=== PATIENT | male | born 1990 | race Caucasian/White ===

== ENCOUNTER 2018-10-07 10:43 | Inpatient (IN) | payer BC ==
[2018-10-07 11:41] LABS: PLATELET COUNT 349 10^3/uL (150-400)
[2018-10-07] MEDS ORDERED: LISINOPRIL 20 MG TAB PO ONE (12:04)
--- NOTE | 2018-10-07 12:17 | CPEKG ---
Test Reason : OPEN Blood Pressure : / mmHG Vent. Rate : 102 BPM Atrial Rate : 102 BPM P-R Int : 188 ms QRS Dur : 103 ms QT Int : 380 ms P-R-T Axes : 051 -14 060 degrees QTc Int : 496 ms Sinus tachycardia LAE, consider biatrial enlargement Prolonged QT interval Confirmed by Jim Hart ([id number]) on 10/07/2018 12:17:12 PM Referred By: Jim Hart Confirmed By:Jim Hart
--- NOTE | 2018-10-07 12:19 | EDPHY ---
H & P Stated Complaint: c/o chest pressure/sob intermittently x 1 month, today elevated bp Time Seen by Provider: 10/07/18 10:43 HPI/ROS: CHIEF COMPLAINT: Chest pain HISTORY OF PRESENT ILLNESS: 27-year-old male arrives via ambulance from his place of employment at [employer] complaining of intermittent chest pain for the past 1 month. Doubt today however he was walking upstairs at work developed chest pain, diaphoresis, near-syncope. He went to the nurse's office at work, blood pressure was 220/110 and ambulance was called. He notes exertional chest pain for the past 1 month. He also notes peripheral edema for the past few months which appears to be progressive. Denies illicit drug use beyond inhalational marijuana use. Denies cocaine use. Denies family history of premature coronary artery disease, VTE or sudden unexplained . PRIMARY CARE PROVIDER: No primary care provider REVIEW OF SYSTEMS: 10 systems reviewed and negative with the exception of the elements mentioned in the history of present illness PAST MEDICAL & SURGICAL HISTORY: No pertinent medical or surgical history SOCIAL HISTORY:Intermittent inhalational marijuana. No tobacco abuse. No cocaine use FAMILY HISTORY: No family history of VTE, premature coronary artery disease, sudden unexplained PHYSICAL EXAM (Prior to examination, patient consented to physical exam, hands were washed and my usual and customary physical exam procedures followed) 1) GENERAL: obese, alert and oriented. Appears to be in no acute distress. 2) HEAD: Normocephalic, atraumatic 3) HEENT: Pupils equal, round, reactive to light bilaterally. Sclera anicteric. Nasopharynx, oropharynx, clear, no lesions. Moist Mucous membranes. 4) NECK: Full range of motion, no meningeal signs. Negative carotid bruit 5) LUNGS: Clear auscultation bilaterally, no wheezes, no rhonchi, no retractions. 6) HEART: Regular rate and rhythm, no murmur, no heave, no gallop. 7) ABDOMEN: No guarding, no rebound, no focal tenderness, negative McBurney's, negative Wilhelm's, negative Rovsing's, negative peritoneal sign, 8) MUSCULOSKELETAL: Moving all extremities, no focal areas of tenderness, no obvious trauma. No peripheral edema or discoloration. 9) BACK: No CVA tenderness, no midline vertebral tenderness, no fluctuance, no step-off, no obvious trauma, no visual or palpable abnormality. 10) SKIN: No rash, no petechiae. 11) Psychiatric: Patient is oriented X 3, there is no agitation. DIFFERENTIAL DIAGNOSIS: In no particular order, including but not limited to myocardial ischemia, pulmonary embolus, chest wall pain, pleural inflammation and pulmonary infectious causes. - Medical/Surgical History Hx Asthma: No Hx Chronic Respiratory Disease: No Hx Diabetes: No Hx Cardiac Disease: No Hx Renal Disease: No Hx Cirrhosis: No Hx Alcoholism: No Hx HIV/AIDS: No Hx Splenectomy or Spleen Trauma: No Other PMH: kidney stones - Social History Smoking Status: Former smoker Constitutional: Initial Vital Signs Temperature (C) 36.6 C 10/07/18 10:51 Heart Rate 108 H 10/07/18 10:51 Respiratory Rate 16 10/07/18 10:51 Blood Pressure 225/140 H 10/07/18 10:51 O2 Sat (%) 97 10/07/18 10:51 O2 Delivery Mode Room Air Allergies/Adverse Reactions: Penicillins Allergy (Verified 10/07/18 10:55) Home Medications: Medication Instructions Recorded Aspirin [Aspirin 325 mg (*)] 975 mg PO DAILY PRN 10/07/18 Medical Decision Making - Diagnostics Imaging Results: Imaging Impressions Chest X-Ray 10/07/18 11:19 Impression: 1. Cardiomegaly versus pericardial effusion. No failure. 2. Mild airways disease. No pneumothorax or pneumonia. ED Course/Re-evaluation: Noon.: Case discussed with secondary supine position Dr. Jim Hart. He is noted to have more than likely biatrial enlargement as well as possible cardiomegaly on exam the presence of hypertension. Negative troponin negative D -dimer. Doubt pneumothorax. Doubt PE.The specific etiology the patient's chest pain is incompletely clear at this time. Recommended hospital admission. Patient is agreeable with this. 12:19 p.m.: Consultation with hospitalist, admit to Dr. Peres for chest pain, hypertension, likely biatrial enlargement - Data Points Laboratory Results: Laboratory Results 10/07/18 10:50 10/07/18 10:50 10/07/18 10/07/18 10/07/18 11:53 10:50 10:50 WBC RBC Hgb Hct MCV MCH MCHC RDW Plt Count MPV Neut % (Auto) Lymph % (Auto) [place] % (Auto) Eos % (Auto) Baso % (Auto) Nucleat RBC Rel Count Absolute Neuts (auto) Absolute Lymphs (auto) Absolute Monos (auto) Absolute Eos (auto) Absolute Basos (auto) Absolute Nucleated RBC Immature Gran % Immature Gran # D-Dimer Sodium Potassium Chloride Carbon Dioxide Anion Gap BUN Creatinine Estimated GFR Glucose Hemoglobin A1c Pending Estim Average Glucose Pending Calcium Total Bilirubin Conjugated Bilirubin Unconjugated Bilirubin AST ALT Alkaline Phosphatase POC Troponin I 0.01 ng/mL ng/mL (0.00-0.08) Total Protein Albumin Lipase TSH 2.010 uIU/mL uIU/mL (0.465-4.680) 10/07/18 10/07/18 10/07/18 10:50 10:50 10:50 WBC 7.69 10^3/uL 10^3/uL (3.80-9.50) RBC 5.56 10^6/uL 10^6/uL (4.40-6.38) Hgb 15.8 g/dL g/dL (13.7-17.5) Hct 47.8 % % (40.0-51.0) MCV 86.0 fL fL (81.5-99.8) MCH 28.4 pg pg (27.9-34.1) MCHC 33.1 g/dL g/dL (32.4-36.7) RDW 13.8 % % (11.5-15.2) Plt Count 349 10^3/uL 10^3/uL (150-400) MPV 10.2 fL fL (8.7-11.7) Neut % (Auto) 65.7 % % (39.3-74.2) Lymph % (Auto) 23.5 % % (15.0-45.0) [place] % (Auto) 7.9 % % (4.5-13.0) Eos % (Auto) 2.2 % % (0.6-7.6) Baso % (Auto) 0.4 % % (0.3-1.7) Nucleat RBC Rel Count 0.0 % % (0.0-0.2) Absolute Neuts (auto) 5.05 10^3/uL 10^3/uL (1.70-6.50) Absolute Lymphs (auto) 1.81 10^3/uL 10^3/uL (1.00-3.00) Absolute Monos (auto) 0.61 10^3/uL 10^3/uL (0.30-0.80) Absolute Eos (auto) 0.17 10^3/uL 10^3/uL (0.03-0.40) Absolute Basos (auto) 0.03 10^3/uL 10^3/uL (0.02-0.10) Absolute Nucleated RBC 0.00 10^3/uL 10^3/uL (0-0.01) Immature Gran % 0.3 % % (0.0-1.1) Immature Gran # 0.02 10^3/uL 10^3/uL (0.00-0.10) D-Dimer Sodium 141 mEq/L mEq/L (135-145) Potassium 4.4 mEq/L mEq/L (3.5-5.2) Chloride 102 mEq/L mEq/L (97-110) Carbon Dioxide 23 mEq/l mEq/l (22-31) Anion Gap 16 mEq/L H mEq/L (6-14) BUN 11 mg/dL mg/dL (7-23) Creatinine 0.9 mg/dL mg/dL (0.7-1.3) Estimated GFR > 60 Glucose 124 mg/dL H mg/dL (70-100) Hemoglobin A1c Estim Average Glucose Calcium 10.2 mg/dL mg/dL (8.5-10.4) Total Bilirubin 0.6 mg/dL mg/dL (0.1-1.4) Conjugated Bilirubin 0.4 mg/dL mg/dL (0.0-0.5) Unconjugated Bilirubin 0.2 mg/dL mg/dL (0.0-1.1) AST 26 IU/L IU/L (17-59) ALT 41 IU/L IU/L (21-72) Alkaline Phosphatase 86 IU/L IU/L (38-126) POC Troponin I Total Protein 8.1 g/dL g/dL (6.3-8.2) Albumin 4.9 g/dL g/dL (3.5-5.0) Lipase 112 IU/L IU/L (23-300) TSH 10/07/18 10:50 WBC RBC Hgb Hct MCV MCH MCHC RDW Plt Count MPV Neut % (Auto) Lymph % (Auto) [place] % (Auto) Eos % (Auto) Baso % (Auto) Nucleat RBC Rel Count Absolute Neuts (auto) Absolute Lymphs (auto) Absolute Monos (auto) Absolute Eos (auto) Absolute Basos (auto) Absolute Nucleated RBC Immature Gran % Immature Gran # D-Dimer < 0.27 ug/mLFEU ug/mLFEU (0.00-0.50) Sodium Potassium Chloride Carbon Dioxide Anion Gap BUN Creatinine Estimated GFR Glucose Hemoglobin A1c Estim Average Glucose Calcium Total Bilirubin Conjugated Bilirubin Unconjugated Bilirubin AST ALT Alkaline Phosphatase POC Troponin I Total Protein Albumin Lipase TSH Medications Given: Discontinued Medications Hydralazine HCl (Apresoline) 10 mg IVP EDNOW ONE Stop: 10/07/18 13:12 Last Admin: 10/07/18 13:48 Dose: 10 mg Lisinopril (Zestril) 20 mg PO EDNOW ONE Stop: 10/07/18 12:05 Last Admin: 10/07/18 12:29 Dose: 20 mg Lorazepam (Ativan Injection) 0.5 mg IVP EDNOW ONE Stop: 10/07/18 13:56 Last Admin: 10/07/18 13:58 Dose: 0.5 mg Point of Care Test Results: Chemistry 10/07/18 11:53 POC Troponin I 0.01 ng/mL ng/mL (0.00-0.08) Departure - Departure Disposition: [facility] Acute Clinical Impression: Hypertensive urgency Chest pain Qualifiers: Chest pain type: unspecified Qualified Code(s): R07.9 - Chest pain, unspecified Condition: Fair
[2018-10-07] MEDS ORDERED: ONDANSETRON 4 MG/2 ML VIAL IVP PRN (12:41)
[2018-10-07] MEDS ORDERED: ONDANSETRON DISINTEGRATING 4 MG TAB PO PRN (12:41)
[2018-10-07] MEDS ORDERED: hydrALAZINE 20 MG/ML VIAL IVP ONE (13:11)
--- NOTE | 2018-10-07 13:42 | PDGENHP ---
<Stephanie Gutierres - Last Filed: 10/07/18 16:51> History and Physical - Chief Complaint Chest pain - History of Present Illness This is a 27 y/o male w/no pertinent PMH or surgeries presenting w/ one month of intermittent chest pain and a few months of progressive peripheral edema. Today while at work, he was walking up stairs when he felt lightheaded near syncope, diaphoretic and chest pressure. He went to the nurse's office where his BP was 220/110 and an ambulance was called. He tells me it is not chest pain but feels like inflammation to his abdominal RUQ and epigastric w/ sensation of pressure. No recent travel. He denies nausea, GRIER, vision changes, vomiting, SOB, diarrhea, constipation, palpitations or difficulty urinating. He is being admitted for further work-up, treatment and monitoring. History Information - Allergies/Home Medication List Allergies/Adverse Reactions: Penicillins Allergy (Verified 10/07/18 10:55) Home Medications: Aspirin [Aspirin 325 mg (*)] 975 mg PO DAILY PRN 10/07/18 [Last Taken 10/07/18] I have personally reviewed and updated: family history, medical history, social history, surgical history Past Medical History: Kidney stones when he was a teenager (they spontaneously passed) - Surgical History Reports: no pertinent surgical hx - Family History Positive for: CAD, father with history of CAD younger than 55, hypertension, myocardial infarction (Uncle at age 30) - Social History Smoking Status: Former smoker Alcohol Use: Occasionally (2x/week will have a couple of beers) Drug Use: Marijuana (Smokes approximately QOD) Additional social history: Lives w/his sister. 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 Spends majority of his free time playing video games. Eats mostly frozen meals. Review of Systems Review of Systems: ROS: 10pt was reviewed & negative except for what was stated in HPI & below Neurological: Reports: depressed (Reports not sleeping well as well as feeling depressed; denies daytime fatigue however does report difficulty falling asleep) Physical Exam Physical Exam: Lab data and imaging were reviewed. EKG: Sinus tachycardia, normal axis. LAE w/suspected bilateral atrium involvement CXR: Cardiomegaly vs pericardial effusion, Mild airway disease. No PNA or pneumothorax D-Dimer: <0.27 Troponin: 0.01 Temp Pulse Resp BP Pulse Ox 36.6 C 93 14 234/140 H 97 10/07/18 10:51 10/07/18 12:30 10/07/18 12:30 10/07/18 12:30 10/07/18 12:30 Constitutional: no apparent distress, not in pain, obese Eyes: PERRL, anicteric sclera, EOMI Ears, Nose, Mouth, Throat: moist mucous membranes, hearing normal, ears appear normal, no oral mucosal ulcers Cardiovascular: regular rate and rhythym, no murmur, rub, or gallop, tachycardia Peripheral Pulses: 2+: dorsalis-pedis (R) (Non-pitting edema), dorsalis-pedis (L ) (Non-pitting edema) Respiratory: reduced air movement Gastrointestinal: normoactive bowel sounds, soft, non-tender abdomen (Non- tender to palpate RUQ/Epigastric area. Reports feeling like he needs to "pop" the area by "cracking" his back), no palpable masses Genitourinary: no bladder fullness, no bladder tenderness Skin: warm, normal color, no rashes or abrasions, no fluctuance, no induration, No mottled Musculoskeletal: full muscle strength, no muscle tenderness, normal joint ROM, no joint effusions Neurologic: AAOx3, sensation intact bilaterally, CN II-XII Intact Psychiatric: interacting appropriately, not encephalopathic, thought process linear, anxious Lymph, Heme, Immunologic: no cervical LAD, no supraclavicular LAD Lab Data & Imaging Review 10/07/18 10:50 10/07/18 10:50 WBC 7.69 10^3/uL (3.80-9.50) 10/07/18 10:50 RBC 5.56 10^6/uL (4.40-6.38) 10/07/18 10:50 Hgb 15.8 g/dL (13.7-17.5) 10/07/18 10:50 Hct 47.8 % (40.0-51.0) 10/07/18 10:50 MCV 86.0 fL (81.5-99.8) 10/07/18 10:50 MCH 28.4 pg (27.9-34.1) 10/07/18 10:50 MCHC 33.1 g/dL (32.4-36.7) 10/07/18 10:50 RDW 13.8 % (11.5-15.2) 10/07/18 10:50 Plt Count 349 10^3/uL (150-400) 10/07/18 10:50 MPV 10.2 fL (8.7-11.7) 10/07/18 10:50 Neut % (Auto) 65.7 % (39.3-74.2) 10/07/18 10:50 Lymph % (Auto) 23.5 % (15.0-45.0) 10/07/18 10:50 [place] % (Auto) 7.9 % (4.5-13.0) 10/07/18 10:50 Eos % (Auto) 2.2 % (0.6-7.6) 10/07/18 10:50 Baso % (Auto) 0.4 % (0.3-1.7) 10/07/18 10:50 Nucleat RBC Rel Count 0.0 % (0.0-0.2) 10/07/18 10:50 Absolute Neuts (auto) 5.05 10^3/uL (1.70-6.50) 10/07/18 10:50 Absolute Lymphs (auto) 1.81 10^3/uL (1.00-3.00) 10/07/18 10:50 Absolute Monos (auto) 0.61 10^3/uL (0.30-0.80) 10/07/18 10:50 Absolute Eos (auto) 0.17 10^3/uL (0.03-0.40) 10/07/18 10:50 Absolute Basos (auto) 0.03 10^3/uL (0.02-0.10) 10/07/18 10:50 Absolute Nucleated RBC 0.00 10^3/uL (0-0.01) 10/07/18 10:50 Immature Gran % 0.3 % (0.0-1.1) 10/07/18 10:50 Immature Gran # 0.02 10^3/uL (0.00-0.10) 10/07/18 10:50 D-Dimer < 0.27 ug/mLFEU (0.00-0.50) 10/07/18 10:50 Sodium 141 mEq/L (135-145) 10/07/18 10:50 Potassium 4.4 mEq/L (3.5-5.2) 10/07/18 10:50 Chloride 102 mEq/L (97-110) 10/07/18 10:50 Carbon Dioxide 23 mEq/l (22-31) 10/07/18 10:50 Anion Gap 16 mEq/L (6-14) H 10/07/18 10:50 BUN 11 mg/dL (7-23) 10/07/18 10:50 Creatinine 0.9 mg/dL (0.7-1.3) 10/07/18 10:50 Estimated GFR > 60 10/07/18 10:50 Glucose 124 mg/dL (70-100) H 10/07/18 10:50 Calcium 10.2 mg/dL (8.5-10.4) 10/07/18 10:50 Total Bilirubin 0.6 mg/dL (0.1-1.4) 10/07/18 10:50 Conjugated Bilirubin 0.4 mg/dL (0.0-0.5) 10/07/18 10:50 Unconjugated Bilirubin 0.2 mg/dL (0.0-1.1) 10/07/18 10:50 AST 26 IU/L (17-59) 10/07/18 10:50 ALT 41 IU/L (21-72) 10/07/18 10:50 Alkaline Phosphatase 86 IU/L (38-126) 10/07/18 10:50 POC Troponin I 0.01 ng/mL (0.00-0.08) 10/07/18 11:53 Total Protein 8.1 g/dL (6.3-8.2) 10/07/18 10:50 Albumin 4.9 g/dL (3.5-5.0) 10/07/18 10:50 Lipase 112 IU/L (23-300) 10/07/18 10:50 Assessment & Plan Plan: 27 y/o obese male w/no PMH presenting w/ one month of intermittent exertional abdominal RUQ/epigastric pressure. Today while walking up the stairs at work, he became diaphoretic, lightheaded and experienced chest pressure therefore went to the nurses's office where his BP was 220/110 and an ambulance was promptly called. This is my first encounter w/the pt. He is in no apparent distress however appearing mildly anxious and verbalized his anxiety. His current vital signs are the following: BP 228/128, HR 93, Resp 16, 36.6c, 97% RA #Hypertensive urgency: Since arrival to ED, his BP has remained elevated in 220s /140s despite receiving Lisinopril PO and Hydralazine IVP -Received Ativan IVP prior to leaving ED and Hydralazine IVP Q6H for sbp > 180; do not want to drop BP too quickly d/t risk of CVA. Nifedipine drip initiated. -Cards consulted -Cont tele/PCU monitoring -Cont Lisinopril in AM #Chest pain: Heart score 3. First trop and EKG negative for ST elevation or ischemia. I considered pulmonary embolism as cause for CP however d-dimer was negative, EKG did not show [id number] signs or RBBB. My suspicion is low to moderate. He took a total of 975 mg of ASA today. -Cycle trop Q6H x 2; cycle EKG Q6H x 1 and then PRN if symptomatic -Cards consulted; spoke to Dr. Peña who will evaluate the pt -Stat ECHO today which demonstrated LVEF 55%, mild LVH, normal RV size and function, normal atria dimensions, normal MV, trileaflet aortic valve w/o sclerosis or insufficiency, grossly normal tricuspid and pulmonic valves, normal aorta dimensions and no pericardial effusion -Lipid panel in AM. -If above testing negative, NM lexiscan in AM #Obesity -Dietary consult -PT/OT to evaluate and treat -TSH/A1c pending -Encouraged increasing his exercise to at least 2-3 days/week at a moderate intensity #Suspected ELEUTERIO -Screening consult Diet: Regular, NPO at midnight tonight VTE ppx: SCDs Code: Full Dispo: Admit to obs <Kay Peres - Last Filed: 10/07/18 21:21> History and Physical - History of Present Illness Review of Systems Review of Systems: Physical Exam Physical Exam: Temp Pulse Resp BP Pulse Ox 36.7 C 110 H 14 187/113 H 96 10/07/18 19:31 10/07/18 19:31 10/07/18 19:31 10/07/18 19:31 10/07/18 19:31 Lab Data & Imaging Review 10/07/18 10:50 10/07/18 10:50 WBC 7.69 10^3/uL (3.80-9.50) 10/07/18 10:50 RBC 5.56 10^6/uL (4.40-6.38) 10/07/18 10:50 Hgb 15.8 g/dL (13.7-17.5) 10/07/18 10:50 Hct 47.8 % (40.0-51.0) 10/07/18 10:50 MCV 86.0 fL (81.5-99.8) 10/07/18 10:50 MCH 28.4 pg (27.9-34.1) 10/07/18 10:50 MCHC 33.1 g/dL (32.4-36.7) 10/07/18 10:50 RDW 13.8 % (11.5-15.2) 10/07/18 10:50 Plt Count 349 10^3/uL (150-400) 10/07/18 10:50 MPV 10.2 fL (8.7-11.7) 10/07/18 10:50 Neut % (Auto) 65.7 % (39.3-74.2) 10/07/18 10:50 Lymph % (Auto) 23.5 % (15.0-45.0) 10/07/18 10:50 [place] % (Auto) 7.9 % (4.5-13.0) 10/07/18 10:50 Eos % (Auto) 2.2 % (0.6-7.6) 10/07/18 10:50 Baso % (Auto) 0.4 % (0.3-1.7) 10/07/18 10:50 Nucleat RBC Rel Count 0.0 % (0.0-0.2) 10/07/18 10:50 Absolute Neuts (auto) 5.05 10^3/uL (1.70-6.50) 10/07/18 10:50 Absolute Lymphs (auto) 1.81 10^3/uL (1.00-3.00) 10/07/18 10:50 Absolute Monos (auto) 0.61 10^3/uL (0.30-0.80) 10/07/18 10:50 Absolute Eos (auto) 0.17 10^3/uL (0.03-0.40) 10/07/18 10:50 Absolute Basos (auto) 0.03 10^3/uL (0.02-0.10) 10/07/18 10:50 Absolute Nucleated RBC 0.00 10^3/uL (0-0.01) 10/07/18 10:50 Immature Gran % 0.3 % (0.0-1.1) 10/07/18 10:50 Immature Gran # 0.02 10^3/uL (0.00-0.10) 10/07/18 10:50 D-Dimer < 0.27 ug/mLFEU (0.00-0.50) 10/07/18 10:50 Sodium 141 mEq/L (135-145) 10/07/18 10:50 Potassium 4.4 mEq/L (3.5-5.2) 10/07/18 10:50 Chloride 102 mEq/L (97-110) 10/07/18 10:50 Carbon Dioxide 23 mEq/l (22-31) 10/07/18 10:50 Anion Gap 16 mEq/L (6-14) H 10/07/18 10:50 BUN 11 mg/dL (7-23) 10/07/18 10:50 Creatinine 0.9 mg/dL (0.7-1.3) 10/07/18 10:50 Estimated GFR > 60 10/07/18 10:50 Glucose 124 mg/dL (70-100) H 10/07/18 10:50 Hemoglobin A1c 5.4 % (4.0-6.0) 10/07/18 10:50 Estim Average Glucose 108 mg/dL (68-126) 10/07/18 10:50 Calcium 10.2 mg/dL (8.5-10.4) 10/07/18 10:50 Total Bilirubin 0.6 mg/dL (0.1-1.4) 10/07/18 10:50 Conjugated Bilirubin 0.4 mg/dL (0.0-0.5) 10/07/18 10:50 Unconjugated Bilirubin 0.2 mg/dL (0.0-1.1) 10/07/18 10:50 AST 26 IU/L (17-59) 10/07/18 10:50 ALT 41 IU/L (21-72) 10/07/18 10:50 Alkaline Phosphatase 86 IU/L (38-126) 10/07/18 10:50 POC Troponin I 0.01 ng/mL (0.00-0.08) 10/07/18 11:53 Troponin I 0.014 ng/mL (0.000-0.034) 10/07/18 19:15 Total Protein 8.1 g/dL (6.3-8.2) 10/07/18 10:50 Albumin 4.9 g/dL (3.5-5.0) 10/07/18 10:50 Lipase 112 IU/L (23-300) 10/07/18 10:50 TSH 2.010 uIU/mL (0.465-4.680) 10/07/18 10:50 Assessment & Plan Assessment: Chest pain (Acute) Hypertensive urgency (Acute) I saw and examined patient with Stephanie Gutierres NP. I agree with H&P except as noted below A 27 yo M with obesity p/w right-side chest/epigastric with exertion for past month. No associated N/V/SOB or radiation. Relief with rest. Increased leg swelling over this month. Pain is becoming more persistent. Had "flu" couple weeks of ago. A&P 1. Angina: ddx: PE, ACS, or due to significantly elevated BP. Dimer, initial trop, EKG negative. Echo with no WMA. -check lipids, A1c 2. Hypertensive emergency: SBP>230. Dosed NINOSKA-I, hydral in ED. Nicardipine ggt with MAP reduction goal by 25% 3. Obesity: counseled on diet and exercise 4. Probable ELEUTERIO: outpatient sleep study. Disp: observation admit for HTN control, telemetry
[2018-10-07] MEDS ORDERED: LORazepam 2 MG/ML INJ IVP ONE (13:55)
[2018-10-07] MEDS ORDERED: LORazepam 2 MG/ML INJ ONE (13:56)
[2018-10-07] MEDS ORDERED: hydrALAZINE 20 MG/ML VIAL IVP PRN (14:35)
--- NOTE | 2018-10-07 14:46 | ECHO ---
[email or web address] [address] Main: [phone] Echocardiography Examination Transthoracic Name: YURIDIA ANTUNEZ MR#: [id number] Study Date: 10/07/2018 Study Time: 01:36 PM Date of : 1990 Age: 27 year(s) Height: 182.9 cm (72 in.) Weight: 145.15 kg (320 lb.) BSA: 2.6 m2 Gender: Male Examination: Echo Contrast: Image Quality: Good Rhythm: Tachycardia Heart Rate: 101 bpm BP: 228 mmHg/128 mmHg Indication: Chest Pain, HTN Crisis Procedure Staff Referring Physician: Knife Cutter: Daniel Hale [facility] Reading Physician: Pasha Peña MD Requesting Provider: Ordering Physician: Stephanie Gutierres Indication: Chest Pain, HTN Crisis Measurements Chambers AV/MV Label Value Normal Value Label Value Normal Value LVOT Vmax 0.95 m/s (0.7m/s - 1.1m/s) AV PGmax 12 mmHg LVOTd 2.1 cm (1.9cm - 2.1cm) AV PGmean 6 mmHg LVOT PGmax 4 mmHg AV Vmax 1.71 m/s LVDd, MM 4.8 cm (4.2cm - 5.9cm) BENTLEY (Vmax) 1.9 cm2 LVDd, 2D 6 cm (4.2cm - 5.9cm) BENTLEY (VTI) 1.9 cm2 LVDs, MM 3.4 cm (2cm - 3.8cm) MV E Vmax 0.56 m/s LVDs, 2D 4.5 cm (2.1cm - 4cm) MV A Vmax 1.03 m/s IVSd, MM 1.6 cm (0.6cm - 0.9cm) MV E/A 0.54 IVSd, 2D 1.1 cm (0.6cm - 1.1cm) MV E/E' lateral 8.4 LVPWd, MM 1.9 cm (0.6cm - 1cm) MV E/E' septal 4.4 (0.6 - 2.6) LVPWd, 2D 1.3 cm (0.6cm - 1cm) MV E' septal 0.13 m/s LVEF, BP 56 % (55% - 70%) MV E' lateral 0.07 m/s LVEF, 2D 49 % (54% - 74%) MV E/E' mean 5.6 LVOT PGmean 2 mmHg MV E' mean 0.1 m/s LVOT Vmean 0.56 m/s TV/PV LADs, 2D 3.8 cm (3cm - 4cm) Label Value Normal Value Additional Vessels PV PGmax 7 mmHg Label Value Normal Value PV Vmax, Caliper 1.34 m/s (0.6m/s - 0.9m/s) AoRoot, 2D 2.5 cm (1.4cm - 2.6cm) Patient: YURIDIA ANTUNEZ Study Date: 10/07/2018 Page 1 of 3 01:36 PM AoRoot, MM 2.8 cm (2.2cm - 3.7cm) Conclusions (1) Left ventricular systolic ejection fraction was normal (55%) - normal wall motion (2) Mild LVH (3) Normal RV size and function (4) Normal atrial dimensions (5) Normal mitral valve (6) Trileaflet aortic valve without sclerosis or insufficiency (7) Grossly normal tricuspid and pulmonic valves (8) Normal aorta dimensions (9) No pericardial effusion Findings Left Ventricle: Left ventricle is normal in size. The EF is visually estimated to be 55 %. EF range is estimated at 55 % - 60 %. There is mild concentric left ventricular hypertrophy. There are no regional wall motion abnormalities. Left ventricular diastolic function parameters are normal. Right Ventricle: Normal size right ventricle. The RV function appears grossly normal. Left Atrium: The left atrium is normal in size. Right Atrium: The right atrium is normal in size. Mitral Valve: Mitral valve appears structurally normal. No mitral regurgitation. No mitral valve stenosis. There is no mitral calcification. Aortic Valve: Aortic leaflets are normal in appearance and function. No aortic valve regurgitation. Aortic leaflets exhibit no calcification. Tricuspid Valve: Tricuspid valve leaflets are normal in appearance and function. No tricuspid regurgitation. Pulmonic Valve: Pulmonic leaflets are normal in appearance and function. No pulmonic valve regurgitation is evident. Aorta: The aorta is normal. The aortic root size in M-mode measures 2.8 cm. The aortic root size in 2D measures 2.5 cm. Aorta Measurements AoRoot, MM is 2.8 cm. AoRoot, 2D is 2.5 cm. Pericardium: No pericardial effusion. Exam Details Procedure Ordered: Echo Procedure Status: Routine study Image Quality: Good Facility Location: Cardiac Echo 1 (No Signature Object) Patient: YURIDIA ANTUNEZ Study Date: 10/07/2018 Page 2 of 3 01:36 PM Patient: YURDIIA ANTUNEZ Study Date: 10/07/2018 Page 3 of 3 01:36 PM [id number]
--- NOTE | 2018-10-07 15:00 | ASMTCMCOM ---
CM Note CM Note Notes: Pt is a 27 y/o man admitted for chest pain. Therapies have been ordered and awaiting recommendations. Pt will most likely d/c independent without any needs. CM available for changes. Plan: Independent Date Signed: 10/07/2018 02:59 PM Electronically Signed By:BALDO Culp
[2018-10-07] MEDS: niCARdipine/NACL 200 ML IV SCH ×3 (16:35→23:18)
--- NOTE | 2018-10-07 16:56 | PDCARCONS ---
Cardiology Consult Reason for Consult: Hypertension Chief Complaint: Feeling poorly with chest tightness Requesting Physician: Hospitalist team History of Present Illness: Patient is a 27 y/o male with fairly unremarkable past medical/cardiovascular history - no CAD, HTN, HLP, or DM - who presented to [facility] ER via EMS after visit to nursing station today with severely elevated blood pressures noted. Over the past month or so, the patient reports that he has not been feeling well. Similar illness has been noted through the family with what several family members were thinking was the "flu". No medical work up was performed because the patient felt if it was the flu, there is not much to do. About one week of work was missed given how poorly he was feeling. Chest tightness and head aches have recently been noted. Diaphoresis and near syncope were also reported. No fevers or chills today. Chest pains have been noted for the past month, on an off. Mild lower extremity swelling was also a new symptom for the patient. No regular or routine exercise. Patient's sister, present with the patient in the room today, relayed a history of "snoring". There are several family members under one roof. Blood pressures measured were >200/>100 mm Hg at the nursing station, and when I checked the pressures today I had a pressure of 275/135 mm Hg. Concerns about cuff size led to rapid reassessment of pressures, and nursing did have slightly better pressures noted (as in chart). Remainder of the 12 point review of systems was unremarkable In speaking with the patient today, he became tearful, and was concerned about dying. History Information - Allergies/Home Medication List Allergies/Adverse Reactions: Penicillins Allergy (Verified 10/07/18 10:55) Home Medications: Aspirin [Aspirin 325 mg (*)] 975 mg PO DAILY PRN 10/07/18 [Last Taken 10/07/18] I have personally reviewed and updated: family history, medical history, social history, surgical history Past Medical History: - Past Medical History no pertinent PMH - Surgical History Reports: no pertinent surgical hx - Family History Positive for: hypertension - Social History Smoking Status: Former smoker Alcohol Use: Occasionally (2x/week will have a couple of beers) Drug Use: Marijuana (Smokes approximately QOD) Cardiac History - Cardiac History Cardiac Risk Factors: hypertension (>140/90), male Timing/Duration: Weeks Severity: moderate Severity Scale: 5 Location: substernal Activities at Onset: activity Modifying Factors: improves with: rest Associated Symptoms: chest pain, headaches, weakness Physical Exam Physical Exam: Temp Pulse Resp BP Pulse Ox 36.8 C 106 H 13 201/111 H 97 10/07/18 16:00 10/07/18 16:47 10/07/18 16:00 10/07/18 16:47 10/07/18 16:00 Constitutional: appears nourished, other (anxious) Eyes: PERRL, EOMI Ears, Nose, Mouth, Throat: moist mucous membranes, hearing normal, ears appear normal Cardiovascular: regular rate and rhythym, no murmur, rub, or gallop, pulses symmetric bilaterally, tachycardia, No JVD, No edema Peripheral Pulses: 2+: dorsalis-pedis (R), dorsalis-pedis (L) Respiratory: no respiratory distress, no rales or rhonchi, clear to auscultation Gastrointestinal: normoactive bowel sounds, soft, non-tender abdomen Skin: warm Musculoskeletal: full muscle strength, no muscle tenderness Neurologic: AAOx3, sensation intact bilaterally, CN II-XII Intact, No facial droop Psychiatric: interacting appropriately, not encephalopathic, anxious Lab and Imaging 10/07/18 10:50 10/07/18 10:50 WBC 7.69 10^3/uL (3.80-9.50) 10/07/18 10:50 RBC 5.56 10^6/uL (4.40-6.38) 10/07/18 10:50 Hgb 15.8 g/dL (13.7-17.5) 10/07/18 10:50 Hct 47.8 % (40.0-51.0) 10/07/18 10:50 MCV 86.0 fL (81.5-99.8) 10/07/18 10:50 MCH 28.4 pg (27.9-34.1) 10/07/18 10:50 MCHC 33.1 g/dL (32.4-36.7) 10/07/18 10:50 RDW 13.8 % (11.5-15.2) 10/07/18 10:50 Plt Count 349 10^3/uL (150-400) 10/07/18 10:50 MPV 10.2 fL (8.7-11.7) 10/07/18 10:50 Neut % (Auto) 65.7 % (39.3-74.2) 10/07/18 10:50 Lymph % (Auto) 23.5 % (15.0-45.0) 10/07/18 10:50 [facility] [place] [facility] % (Auto) 7.9 % (4.5-13.0) 10/07/18 10:50 Eos % (Auto) 2.2 % (0.6-7.6) 10/07/18 10:50 Baso % (Auto) 0.4 % (0.3-1.7) 10/07/18 10:50 Nucleat RBC Rel Count 0.0 % (0.0-0.2) 10/07/18 10:50 Absolute Neuts (auto) 5.05 10^3/uL (1.70-6.50) 10/07/18 10:50 Absolute Lymphs (auto) 1.81 10^3/uL (1.00-3.00) 10/07/18 10:50 Absolute Monos (auto) 0.61 10^3/uL (0.30-0.80) 10/07/18 10:50 Absolute Eos (auto) 0.17 10^3/uL (0.03-0.40) 10/07/18 10:50 Absolute Basos (auto) 0.03 10^3/uL (0.02-0.10) 10/07/18 10:50 Absolute Nucleated RBC 0.00 10^3/uL (0-0.01) 10/07/18 10:50 Immature Gran % 0.3 % (0.0-1.1) 10/07/18 10:50 Immature Gran # 0.02 10^3/uL (0.00-0.10) 10/07/18 10:50 D-Dimer < 0.27 ug/mLFEU (0.00-0.50) 10/07/18 10:50 Sodium 141 mEq/L (135-145) 10/07/18 10:50 Potassium 4.4 mEq/L (3.5-5.2) 10/07/18 10:50 Chloride 102 mEq/L (97-110) 10/07/18 10:50 Carbon Dioxide 23 mEq/l (22-31) 10/07/18 10:50 Anion Gap 16 mEq/L (6-14) H 10/07/18 10:50 BUN 11 mg/dL (7-23) 10/07/18 10:50 Creatinine 0.9 mg/dL (0.7-1.3) 10/07/18 10:50 Estimated GFR > 60 10/07/18 10:50 Glucose 124 mg/dL (70-100) H 10/07/18 10:50 Calcium 10.2 mg/dL (8.5-10.4) 10/07/18 10:50 Total Bilirubin 0.6 mg/dL (0.1-1.4) 10/07/18 10:50 Conjugated Bilirubin 0.4 mg/dL (0.0-0.5) 10/07/18 10:50 Unconjugated Bilirubin 0.2 mg/dL (0.0-1.1) 10/07/18 10:50 AST 26 IU/L (17-59) 10/07/18 10:50 ALT 41 IU/L (21-72) 10/07/18 10:50 Alkaline Phosphatase 86 IU/L (38-126) 10/07/18 10:50 POC Troponin I 0.01 ng/mL (0.00-0.08) 10/07/18 11:53 Total Protein 8.1 g/dL (6.3-8.2) 10/07/18 10:50 Albumin 4.9 g/dL (3.5-5.0) 10/07/18 10:50 Lipase 112 IU/L (23-300) 10/07/18 10:50 TSH 2.010 uIU/mL (0.465-4.680) 10/07/18 10:50 Visualized and Interpreted Chest x-ray results: Yes Chest X-ray Interpretation: no infiltrate, other (possible enlargment of heart ( query body habitus)) Visualized and Interpreted EKG results: Yes EKG Interpretation: Positive for: normal sinsus rhythm (sinus tachycardia with possible bilateral atrial enlargement) Telemetry: Sinus tachycardia Echocardiogram: Normal LVEF without aydin valve pathology appreciated A/P Assessment: Patient is a 27 y/o male with hypertensive urgency (no neurologic sequelae were noted). In the ER, the patient was given a mid dose of ACEi and a single dose of hydralazine, with release to the floor. On the floor, the pressures continued to be moderately to severely elevated (>200/>100 mm Hg). Mild chest tightness was noted, but no visual field changes and no complaints of head ache. Echocardiography without pathology noted. No cardiac biomarker elevation was noted. Some degree of hypertension likely due to the concern that medical staff has voiced with blood pressures noted. Uncertain how long this patient has had some elevation to pressures given a lack of medical interaction through time. Plan: (1) Consider flu swab to ensure that the patient is not a risk to others ( staff and family) (2) Would start nicardipine drip (5 mg/hr) and up titrate as response noted (3) Consider renal protein assessment as well as HGBA1C (4) Formal sleep study (in the outpatient setting) is indicated (5) Weight loss and regular exercise (6) Patient may need dual or triple therapy given the pressures that have been noted (7) Cardiology will continue to follow this patient
[2018-10-07] MEDS: ACETAMINOPHEN 325 MG TAB PO PRN (20:07)
[2018-10-07] MEDS: LORazepam 2 MG/ML INJ IVP PRN (20:08)
[2018-10-08 05:22] LABS: PLATELET COUNT 308 10^3/uL (150-400)
[2018-10-08] MEDS: niCARdipine/NACL 200 ML IV SCH (07:24)
[2018-10-08] MEDS ORDERED: CARVEDILOL 3.125 MG TAB PO SCH (08:00)
[2018-10-08] MEDS: LISINOPRIL 20 MG TAB PO SCH (08:18)
[2018-10-08] MEDS ORDERED: REGADENOSON 0.4 MG/5 ML SYR IVP ONE (09:15)
--- NOTE | 2018-10-08 10:41 | PDCARPN ---
Cardiology Progress Note Chief Complaint: Hypertension Assessment/Plan: Assessment: 1. Admitted with hypertensive urgency: BP 210/110, unresponsive to hydralazine and lisinopril in the ED. Nicardipine drip started with modest improvement in BPs overnight. Currently 170s/90s. Mild LVH on echo. No known history of HTN, although it has been many years since Dakota was seen by any medical providers 2. Chest pressure: Occurring intermittently over the past month with notable exacerbation yesterday prior to admission. Resolved this AM. Negative serial troponins, no ischemic changes on ETT. 3. Obesity Plan: 1. Plan for outpatient nuclear imaging stress testing 2. Workup for obstructive sleep apnea outpatient 3. Diet and lifestyle modification for weightloss and BP management 4. Start Norvasc 5mg daily 5. DC Nicardipine drip 1 hour after starting Norvasc 6. Workup for secondary causes of HTN including renal US and 24hr urine metanephrines, epi, and norepi 7. Likely DC home tomorrow 10/08/18 11:58 Subjective: Feeling better this AM, anxious to know that he is "not dying," reassurance provided Reviewed/Discussed With: multidisciplinary team Time Spent with Patient: greater than 25 minutes Time Spent with Patient: Greater than 25 minutes spent on this patients care, greater than 50% of time spent counseling, educating, and coordinating care regarding the above mentioned plan. Objective: Vital Signs (8 Hrs) Temp Pulse Resp BP Pulse Ox 10/08/18 09:42 176/100 H 10/08/18 08:00 36.9 C 100 17 172/95 H 97 10/08/18 06:30 96 179/95 H 10/08/18 06:15 102 H 208/110 H 10/08/18 04:00 36.6 C 95 16 132/82 H 97 10/08/18 03:00 72 144/91 H 10/08/18 02:00 128/76 H Intake/Output (24 Hrs) 10/07/18 10/08/18 10/09/18 05:59 05:59 05:59 Intake Total 790 Balance 790 Intake: Oral (ml) 450 IV Infused (ml) 340 niCARdipine/NACL 200 ml @ 340 Titrate IV CONT ROBINA Rx#: [id number] Other: Weight 145.6 kg Number of Voids Toilet 2 Result Diagrams: 10/08/18:52 10/08/18 04:52 Cardiac Labs: Cardiac Lab Results (72 Hrs) 10/07/18 10/07/18 23:34 19:15 Troponin I 0.024 0.014 EKG: NSR Telemetry: NSR overnight Echocardiogram: LVEF 55%, mild LVH, no significant valvular disease - Physical Exam Constitutional: WDWN, healthy appearing, no apparent distress Ears, Nose, Mouth, Throat: moist mucous membranes, no oral ulcers, no thrush Cardiovascular: regular rate and rhythm, no murmurs, no rubs, no gallops Peripheral Pulses: 2+: dorsalis-pedis (R), dorsalis-pedis (L) Respiratory: clear to auscultate bilat, no crackles, no wheezes Gastrointestinal: normoactive bowel sounds, no tenderness, no masses Neurologic: AAOx3, CN II-XII grossly intact Psychiatric: cooperative, interactive, following commands, not anxious ICD10 Worksheet Patient Problems: Problems Problem Status Onset Chest pain Acute Hypertensive urgency Acute
[2018-10-08] MEDS ORDERED: amLODIPine BESYLATE 5 MG TAB PO SCH (11:11)
--- NOTE | 2018-10-08 14:27 | HOSPPROG ---
Hospitalist Progress Note Assessment/Plan: Hypertensive urgency - required Cardene drip, more normotensive this afternoon after Lisinopril, Coreg and Norvasc. -cont lisinopril, Norvasc -hold further coreg given rapid drop in BP this afternoon -renal u/s and pheo w/u to eval for secondary causes of hypertension Chest pain - trop neg x3. EKG non-ischemic. No events on telemetry. -outpt stress test Suspected ELEUTERIO - outpt sleep study Obesity Dispo - change to inpt for ongoing management of hypertensive urgency Subjective: Pt feels much better today, feels normal. No zamorano, vision changes, CP or SOB. Objective: Vital Signs Temp Pulse Resp BP Pulse Ox 36.9 C 98 18 118/62 97 10/08/18 08:00 10/08/18 12:00 10/08/18 12:00 10/08/18 12:00 10/08/18 12:00 Laboratory Results 10/08/18 04:52 10/08/18 04:52 10/07/18 10/08/18 10/09/18 05:59 05:59 05:59 Intake Total 790 Balance 790 - Physical Exam Constitutional: no apparent distress, obese Eyes: PERRL Ears, Nose, Mouth, Throat: moist mucous membranes Cardiovascular: regular rate and rhythym Respiratory: no respiratory distress, clear to auscultation Gastrointestinal: normoactive bowel sounds, soft, non-tender abdomen Skin: warm Musculoskeletal: full muscle strength Neurologic: AAOx3 Psychiatric: interacting appropriately ICD10 Worksheet Patient Problems: Problems Problem Status Onset Chest pain Acute Hypertensive urgency Acute
[2018-10-08] MEDS: LORazepam 2 MG/ML INJ IVP PRN (22:43)
[2018-10-08] MEDS: ACETAMINOPHEN 325 MG TAB PO PRN (22:49)
[2018-10-09] MEDS: LISINOPRIL 20 MG TAB PO SCH (07:55)
--- NOTE | 2018-10-09 08:43 | PDCARPN ---
Cardiology Progress Note Chief Complaint: Hypertension Assessment/Plan: Assessment: 1. Admitted with hypertensive urgency: BP 210/110 upon admission, BPs improving with Lisinopril, and Amlodipine. Mild LVH on echo. No known history of HTN, although it has been many years since Dakota was seen by any medical providers. Renal US yesterday was unremarkable. Workup for pheochromocytoma is pending 2. Chest pressure: Occurring intermittently over the past month with notable exacerbation prior to admission. Negative serial troponins, no ischemic changes on ETT. 3. Obesity Plan: 1. Plan for outpatient nuclear imaging stress testing with [facility] 2. Workup for obstructive sleep apnea outpatient 3. Diet and lifestyle modification for weight loss and BP management 4. Continue increased dose of Norvasc 10mg daily in addition to Lisinopril 5. Continue workup for secondary causes of HTN including 24hr urine metanephrines and catecholamines to rule out pheochromocytoma 7. OK to DC home today from a cardiovascular standpoint. Follow-up with general cardiology at [facility] 10/09/18 09:07 Subjective: No issues overnight, ambulating around his room this morning without cardiovascular concerns, he feels stable for DC home today Reviewed/Discussed With: multidisciplinary team Time Spent with Patient: greater than 25 minutes Time Spent with Patient: Greater than 25 minutes spent on this patients care, greater than 50% of time spent counseling, educating, and coordinating care regarding the above mentioned plan. Objective: Vital Signs (8 Hrs) Temp Pulse Resp BP Pulse Ox 10/09/18 04:00 36.6 C 72 12 172/99 H 99 Intake/Output (24 Hrs) 10/08/18 10/09/18 10/10/18 05:59 05:59 05:59 Intake Total 790 1173 Balance 790 1173 Intake: Oral (ml) 450 950 IV Infused (ml) 340 223 niCARdipine/NACL 200 ml @ 340 223 Titrate IV CONT ROBINA Rx#: [id number] Other: Weight 145.6 kg Number of Voids Toilet 2 3 Result Diagrams: 10/08/18 04:52 10/09/18 04:50 Cardiac Labs: Cardiac Lab Results (72 Hrs) 10/07/18 10/07/18 23:34 19:15 Troponin I 0.024 0.014 Telemetry: NSR - Physical Exam Constitutional: WDWN, healthy appearing, no apparent distress Ears, Nose, Mouth, Throat: moist mucous membranes, no oral ulcers, no thrush Cardiovascular: regular rate and rhythm, no murmurs, no rubs, no gallops Peripheral Pulses: 2+: dorsalis-pedis (R), dorsalis-pedis (L) Respiratory: clear to auscultate bilat, no crackles, no wheezes Gastrointestinal: normoactive bowel sounds, no tenderness, no masses Neurologic: AAOx3, CN II-XII grossly intact Psychiatric: cooperative, interactive, following commands, not anxious ICD10 Worksheet Patient Problems: Problems Problem Status Onset Chest pain Acute Hypertensive urgency Acute
[2018-10-09 08:53] VITALS: BP 169/92
--- NOTE | 2018-10-09 09:16 | ASDISCHSUM ---
Discharge Information Plan Status:Home with No Needs Medically Cleared to Leave:10/09/2018 Discharge Date:10/09/2018 CM D/C Disposition:Home, Routine, Self-Care ADT D/C Disposition:Home, Routine, Self-Care Projected Discharge Date:10/09/2018 Transportation at D/C: Discharge Delay Reason: Follow-Up Date:10/09/2018 Discharge Slot: Final Diagnosis: Placement Information Patient Contact Information Contact Name:RIGO Relationship: Address: Home Phone: Work Phone: City: Alternate Phone: [facility]/sones Code: Email: Financial Information Financial Class:BCOP Primary Plan Desc:BC OUT OF STATE PPO Primary Plan Number:[id number] Secondary Plan Desc: Secondary Plan Number: Assessment Information LACE LACE Length of stay for Answers: 1 day current admission Acuity / Level of Answers: No Care: Did the patient have an inpatient admission? Comorbidities - select Answers: Other Notes: HTN, all that apply # of Emergency department Answers: 1-2 visits in the last 6 months Score: 3 Date Signed: 10/09/2018 09:14 AM Electronically Signed By:Susi Abarca RN [facility] Progress Note CM Note CM Note Notes: Pt is a 27 y/o man admitted for chest pain. Therapies have been ordered and awaiting recommendations. Pt will most likely d/c independent without any needs. CM available for changes. Plan: Independent Date Signed: 10/07/2018 02:59 PM Electronically Signed By:BALDO Culp Case Management Discharge Plan Note Case Management Discharge Discharge Order Complete? Answers: Yes Patient to Obtain Answers: Independently Medications Transportation Arranged Answers: Family/Friends Discharge Comments Notes: 10/09/2018 Case Management Note Pt to discharge independent with follow up as directed. Date Signed: 10/09/2018 09:15 AM Electronically Signed By:Susi Abarca RN Intervention Information
--- NOTE | 2018-10-09 13:31 | PDMN ---
Medical Necessity Medical necessity: [facility] [place] [facility] M197 Hypertension, 2 days: 27 yo w/ CP, periph edema, lightheadedness near syncope, diaphoretic. Eval reveals BP 220/110. Initially OBS for immediate tx hypertensive urgency and cardiac workup w/ cardio consult. Pt responded initially to tx but re-developed hypertensive urgency overnight w / SBP 208 and tachycardia requiring ongoing Cardene gtt. Cardiology cont to follow. Change to IP status for ongoing management of hypertensive urgency.
--- NOTE | 2018-10-09 19:34 | GDS ---
[f rep st] DISCHARGE SUMMARY DISCHARGE DIAGNOSES: 1. Hypertensive emergency. 2. Chest pain, resolved. 3. Suspected obstructive sleep apnea. 4. Severe obesity. CONSULTS: Dr. Pasha Peña, cardiology. IMAGING/STUDIES/PROCEDURES: 1. Echocardiogram October 07, 2018 showed a normal ejection fraction of 55% with no wall motion abnorma lities, mild left ventricular hypertrophy, normal right ventricular size and function and no pericard ial effusion. 2. Renal ultrasound was normal. HISTORY OF DETAILS: Please see history and physical dated October 07, 2018. In brief, patient is a 27- year-old male with obesity, who presented to the emergency department with headaches and chest pain. He was found to be severely hypertensive with initial blood pressure of 234/140. He was admitted to the hospital for further management. HOSPITAL COURSE: Patient was admitted to the cardiac telemetry unit. He was initiated on a Cardene drip to slowly lower his blood pressure in the setting of hypertensive emergency with end-organ damag e including chest pain and headache. He had negative troponins x3. Oral medications were initiated starting with lisinopril 20 mg daily. He was able to wean off the Cardene drip. Norvasc was then st arted at 5 mg daily. This is up titrated to 10 mg daily. His blood pressure on discharge has improv ed to 160s/90s. He may warrant further up titration of his medications in the outpatient setting and possibly addition of a 3rd agent. If a 3rd agent is required, I would recommend initiation of Coreg . Given his young age, workup for secondary causes of hypertension were initiated including a renal ult rasound which was normal. In addition, 24 hour urine collection was started. However, this has not yet been completed and the patient wished to discharge home and bring this back to the lab this ld marcelo. A 24 hour urine for metanephrines and creatinine is currently pending and [facility] w ill follow up on this in the clinic when they see him next week. In addition, it is recommended he h ave an outpatient nuclear medicine stress test as well as an outpatient sleep study. On the day of discharge, blood pressure is 169/92, heart rate 96, respiratory rate 16. He is 95% on room air. DISPOSITION: Patient is discharged home in stable condition. Followup: 1. Dr. Alin Chavez or Jailene Victoria, [facility], for outpatient cardiac stress test. 2. Primary care. I have referred him to Dr. Zbigniew García. He will need an outpatient sleep study for presumed sleep apnea. [facility] will follow up on his currently pending 24 hour urine for pheoc hromocytoma workup. DISCHARGE MEDICATIONS: 1. Amlodipine 10 mg p.o. daily #30, no refills. 2. Lisinopril 20 mg p.o. daily #30, no refills. /[id number]
== END 2018-10-09 10:33 | disposition home or self-care (01) | DRG 305 ==
LOC: F2W 14:10 → OBSVTOIN 10-08 14:23
PROVIDERS: ADMIT Internal Medicine; ATTEND Internal Medicine
DX: I16.1 Hypertensive emergency (principal); R07.89 Other chest pain; G47.33 Obstructive sleep apnea (adult) (pediatric); E66.8 Other obesity; Z87.891 Personal history of nicotine dependence
CPT/HCPCS: 84484-ER; 97161-GP; G0378; J0360; J2060; J2785